=== PATIENT | male | born 1980 | race Caucasian/White ===

== ENCOUNTER 2018-03-18 13:47 | Emergency (ER) | payer SELFPAY ==
[~2018-03-18] VITALS: Ht 182.9 cm; Wt 104.5 kg
[2018-03-18 13:50] VITALS: BP 135/91; TEMP 98.4
[2018-03-18] MEDS ORDERED: DOXYCYCLINE 10100 MG PO (14:13)
[2018-03-18 14:18] VITALS: PULSE 92
[2018-03-18] MEDS ORDERED: TOPROL XL 25MG25 MG PO (14:20)
[2018-03-18] MEDS ORDERED: PRINIVIL10 MG PO (14:20)
== END 2018-03-18 14:22 | disposition home or self-care (01) ==
LOC: COL.ER 13:47
DX: L08.9 Local infection of the skin and subcutaneous tissue, unspecified (principal); F32.9 Major depressive disorder, single episode, unspecified; F41.9 Anxiety disorder, unspecified; F17.210 Nicotine dependence, cigarettes, uncomplicated; Z98.890 Other specified postprocedural states